=== PATIENT | female | born 1985 | race Caucasian/White ===

== ENCOUNTER → 2017-11-02 | Outpatient (CLI) | payer OTHER ==
[~2017-11-02] MED LIST: LIDEX0.05% T; MOTRIN800 MG PO; PNV-SELECT1 TAB PO; PREDNICOT20 MG PO; ROBAXIN750 MG PO; TRAMADOL HCL50 MG PO
== END | disposition home or self-care (01) ==
LOC: RAD 10:36
DX: M79.645 Pain in left finger(s) (principal)

== ENCOUNTER → 2018-06-07 | Outpatient (CLI) | payer OTHER ==
[2018-06-07 11:59] LABS: HEMATOCRIT 42.9 % (37.0-47.0); MEAN CELL VOLUME 92.1 fl (81.0-99.0); MEAN CORPUSCULAR HGB CONC 32.6 g/dl (33.0-37.0); MEAN PLATELET VOLUME 10.5 fl (9.6-12.3); RED BLOOD COUNT 4.66 10*6/uL (4.10-5.10); RED CELL DISTRI WIDTH 12.6 % (0-14.5); WHITE BLOOD COUNT 4.8 10*3/uL (4.8-10.8)
[2018-06-07 12:24] LABS: ALBUMIN 4.2 gm/dl (3.1-4.5); ALKALINE PHOSPHATASE 42 U/L (45-117); BUN 12 mg/dl (7-24); CHLORIDE 100 mmol/L (98-107); CHOLESTEROL 183 mg/dL (<200); HDL CHOLESTEROL 68 mg/dl (40-60); LDL CHOLESTEROL 104 mg/dL (9-159); POTASSIUM 4.2 mmol/L (3.5-5.1); SGOT/AST 22 IU/L (3-35); SGPT/ALT 35 U/L (12-78); SODIUM 133 mmol/L (136-145); TRIGLYCERIDES 54 mg/dl (<150); VLDL CHOLESTEROL 11 mg/dL (6-40)
[2018-06-07 13:25] LABS: VITAMIN D, 25-HYDROXY 15.7 ng/mL (30-100)
[2018-06-08 09:12] LABS: RHEUMATOID ARTHRITIS FACTOR <10.0 IU/mL (0.0-13.9)
== END | disposition home or self-care (01) ==
LOC: LAB 11:28
PROVIDERS: Family Medicine
DX: Z13.220 Encounter for screening for lipoid disorders (principal); M25.50 Pain in unspecified joint; E55.9 Vitamin D deficiency, unspecified; R50.9 Fever, unspecified

== ENCOUNTER → 2018-06-18 | Outpatient (CLI) | payer OTHER | END | disposition home or self-care (01) | LOC: CT 09:58 | DX: R50.9 Fever, unspecified (principal); R53.83 Other fatigue; R63.4 Abnormal weight loss; M25.559 Pain in unspecified hip ==

== ENCOUNTER → 2018-07-01 | Outpatient (CLI) | payer OTHER ==
[2018-07-02 11:05] LABS: ANTISCLERODERMA-70 AB <0.2 AI (0.0-0.9)
[2018-07-04 00:08] LABS: IMMUNOGLOBULIN IgE 002170 14 IU/mL (0-100)
[2018-07-04 17:11] LABS: MANGANESE WHOLE BLOOD 11.1 ug/L (8.0-18.7)
[2018-07-08 11:07] LABS: METANEPHRINE, PLASMA <10 pg/mL (0-62); NORMETANEPHRINE, PLASMA <10 pg/mL (0-145)
== END | disposition home or self-care (01) ==
LOC: LAB 10:09
PROVIDERS: Family Medicine
DX: R50.9 Fever, unspecified (principal); M79.10 Myalgia, unspecified site; Z77.018 Contact with and (suspected) exposure to other hazardous metals

== ENCOUNTER → 2018-07-12 | Outpatient (CLI) | payer OTHER ==
[2018-07-13 08:10] LABS: TOXOPLASMA GONDII IGM 3.2 AU/mL (0.0-7.9)
[2018-07-13 15:08] LABS: EPSTEIN-BARR VCA IGM AB <36.0 U/mL (0.0-35.9)
[2018-07-15 14:10] LABS: B. HENSELAE IGG Negative titer (Neg:<1:320); B. HENSELAE IGM Negative titer (Neg:<1:100); B. QUINTANA IGG Negative titer (Neg:<1:320); B. QUINTANA IGM Negative titer (Neg:<1:100)
[2018-07-16 02:05] LABS: ROCKY MTN SPOTTED FEV IGM 1.17 index (0.00-0.89)
== END | disposition home or self-care (01) ==
LOC: LAB 13:04
PROVIDERS: Internal Medicine Infectious Disease
DX: R50.9 Fever, unspecified (principal)

== ENCOUNTER → 2022-08-31 | Outpatient (CLI) | payer OTHER ==
[2022-08-31 12:36] LABS: HEMATOCRIT 40.4 % (37.0-47.0); MEAN CELL VOLUME 88.4 fl (81.0-99.0); MEAN CORPUSCULAR HGB 29.8 pg (27.0-31.0); MEAN CORPUSCULAR HGB CONC 33.7 g/dl (33.0-37.0); MEAN PLATELET VOLUME 10.7 fl (9.6-12.3); RED BLOOD COUNT 4.57 10*6/uL (4.10-5.10); RED CELL DISTRI WIDTH 12.2 % (0-14.5); WHITE BLOOD COUNT 7.5 10*3/uL (4.8-10.8)
[2022-08-31 12:57] LABS: ALKALINE PHOSPHATASE 45 U/L (46-116); BUN 6 mg/dl (9-23); CHLORIDE 106 mmol/L (98-107); CHOLESTEROL 176 mg/dL (<200); LDL CHOLESTEROL 96 mg/dL (9-159); POTASSIUM 4.3 mmol/L (3.4-5.1); SGPT/ALT 16 U/L (10-49); TOTAL PROTEIN 7.3 gm/dL (6.0-8.0); TRIGLYCERIDES 103 mg/dl (<150)
== END | disposition home or self-care (01) ==
LOC: LAB 11:54
PROVIDERS: ATTEND Family Medicine
DX: Z00.00 Encounter for general adult medical examination without abnormal findings (principal); R07.9 Chest pain, unspecified; Z13.220 Encounter for screening for lipoid disorders; M79.18 Myalgia, other site

== ENCOUNTER → 2022-10-11 | Outpatient (CLI) | payer OTHER | END | disposition home or self-care (01) | LOC: CT 10-06 14:00 | PROVIDERS: ATTEND Family Medicine | DX: R07.9 Chest pain, unspecified (principal); K76.0 Fatty (change of) liver, not elsewhere classified; G89.29 Other chronic pain ==

== ENCOUNTER → 2022-11-02 | Outpatient (CLI) | payer OTHER | END | disposition home or self-care (01) | LOC: US 01:56 | PROVIDERS: ATTEND Family Medicine | DX: K76.0 Fatty (change of) liver, not elsewhere classified (principal) ==